=== PATIENT | female | born 1970 | race Hispanic/Latino ===

== ENCOUNTER 2017-12-01 17:58 | Emergency (ER) | payer MEDICAID ==
[~2017-12-01] VITALS: Ht 165.1 cm; Wt 80.7 kg
[~2017-12-01 17:58] MED LIST: PRENATAL VITAM1 EACH PO
== END 2017-12-01 21:35 | disposition home or self-care (01) ==
LOC: ED 17:58
DX: O20.0 Threatened abortion (principal); Z3A.08 8 weeks gestation of pregnancy
CPT/HCPCS: 76801; 76802; 76817; 80053; 84702; 85025; 86900; 86901; 99284